=== PATIENT | female | born 1995 | race Two or more races ===

== ENCOUNTER 2019-06-15 23:17 | Emergency (ER) | payer OTHER ==
[~2019-06-15] VITALS: Ht 165.1 cm; Wt 60.8 kg
[2019-06-15 23:27] VITALS: Ht 165.1 cm; Wt 60.8 kg
[2019-06-16 01:33] VITALS: BP 125/80
== END 2019-06-16 01:33 | disposition home or self-care (01) ==
LOC: ED 23:17
DX: J02.0 Streptococcal pharyngitis (principal)
CPT/HCPCS: J1100